=== PATIENT | male | born 1985 | race Caucasian/White ===

== ENCOUNTER 2020-09-25 13:50 | Emergency (ER) | payer OTHER, SELFPAY ==
[2020-09-25 13:53] VITALS: BP 152/79; PULSE 79; RESP 18; TEMP 35.7; O2SAT 100
[2020-09-25 14:14] LABS: Basophils Percent Auto 0.5 % (0.2-1.2); Eosinophils Absolute Auto 0.3 K/mm3 (0-0.3); Hematocrit 44.4 % (42.0-52.0); Immature Granulocyte Absolute 0.02 K/mm3 (0.00-0.031); Immature Granulocyte Percent A 0.3 % (0-0.5); Lymphocytes Absolute Auto 2.06 K/mm3 (0.9-3.2); Lymphocytes Percent Auto 28.3 % (18.3-44.2); Mean Corpuscular HGB Conc 33.8 g/dl (32-36); Mean Corpuscular Hemoglobin 27.7 pg (26-34); Mean Corpuscular Volume 81.9 fl (80-100); Mean Platelet Volume 11.2 fl (7.4-10.4); Monocytes Absolute Auto 0.6 K/mm3 (0.1-0.6); Monocytes Percent Auto 7.5 % (2.6-8.5); Neutrophils Absolute Auto 4.3 K/mm3 (1.3-6.7); Neutrophils Percent Auto 59.4 % (45.5-73.1); Platelet Count Result 171 k/mm3 (150-375); Red Blood Count 5.42 M/mm3 (4.6-6.20); Red Cell Distribution Width 12.5 % (11.5-14.5); White Blood Count 7.3 K/mm3 (4.5-10.0)
[2020-09-25 14:27] LABS: Alanine Aminotransferase 37 U/L (4-50); Albumin Level 4.3 g/dL (3.5-5.1); Alkaline Phosphatase 61 U/L (38-126); Anion Gap 5 mmol/L (8-16); Aspartate Amino Transferase 32 U/L (17-59); Bilirubin,Total 0.4 mg/dL (0.2-1.3); Blood Urea Nitrogen 17 mg/dL (9-20); Calcium 9.1 mg/dL (8.4-10.2); Carbon Dioxide 31 mmol/L (22-30); Chloride 104 mmol/L (98-107); Estimated CRCL calculation 125 ml/min; Estimated Glomerular Filt Rate > 60; Glucose 89 mg/dL (75-110); Potassium 3.8 mmol/L (3.4-5.0); Sodium 140 mmol/L (137-145)
--- NOTE | 2020-09-25 14:32 | PC.NURSE ---
provider in room now for rectal exam. labs have been sent.
[2020-09-25 14:35] LABS: Partial Thromboplastin Time 29.8 SECONDS (22.3-36.8); Prothrombin Time 14.2 Seconds (11.1-14.7)
--- NOTE | 2020-09-25 14:35 | PC.NURSE ---
provider done with exam. planning to discharge patient soon.
--- NOTE | 2020-09-25 14:36 | ED.GIBLEED ---
HPI - GI Bleed General Chief complaint: GI Bleed Stated complaint: Blood in Stool Time Seen by Provider: 09/25/20 14:12 Source: patient Mode of arrival: ambulatory Limitations: no limitations History of Present Illness HPI Narrative: 35-year-old male presents to the emergency department today with complaints of blood in his stools. Patient states that he noted that it started on Monday and this was the heaviest day by far. Patient states that the blood was not mixed in with the stool but rather seem to coded. He notes that when he went to wipe himself there was bright red blood. This happened twice on Monday. Patient stated that on there was no further bleeding. Patient notes that today when he had his morning bowel movement there was some blood associated with this but again not as much as Monday. Patient denies being on any blood thinners, denies any foreign bodies in his anus or any sexual activities involving his anus. Related Data Allergies Allergy/AdvReac Type Severity Reaction Status Date / Time No Known Allergies Allergy Unverified 01/08/12 14:18 Review of Systems Review of Systems: Narrative: CONSTITUTIONAL: Denies fever, chills, or sweats. EYES: Denies visual changes, redness, or discharge. ENT: Denies rhinorrhea, congestion, sore throat, or otalgia. CARDIOVASCULAR: Denies chest pain, palpitations, or edema. RESPIRATORY: Denies cough or dyspnea. GASTROINTESTINAL: Denies abdominal pain, nausea, vomiting, or diarrhea. GENITOURINARY: Denies dysuria or hematuria. SKIN: Denies rash or itching. MUSCULOSKELETAL: Denies back pain, joint pain, or myalgia. NEUROLOGIC: Denies headache, numbness, dizziness, or weakness. PSYCHIATRIC: Denies anxiety or depression. Exam Narrative: Exam Narrative: GENERAL: Well-appearing, well-nourished, and in no acute distress. HEAD: Normocephalic, atraumatic. EYES: PERRLA and EOMI. ENT: Nares clear, no rhinorrhea or epistaxis. Mucous membranes moist. Oropharynx without tonsillar hypertrophy exudate or other lesions. Bilateral TMs pearly mccoy nonbulging NECK: Supple. No adenopathy or masses. No carotid bruits or JVD CHEST: Clear to auscultation. No respiratory distress. No wheezes rales or rhonchi HEART: Regular rate and rhythm. No murmur heard. Normal peripheral pulses. ABDOMEN: Soft, nontender, nondistended, normal active bowel sounds. Rectal: Slight swelling noted at the 4 o'clock position. No blood seen. Nontender exam. EXTREMITIES: Normal range of motion. No edema. SKIN: Warm, dry, no rash. NEURO: No focal deficits. Alert and oriented x3. PSYCH: Normal mood and affect. Course Vital Signs Vital signs: Vital Signs Temperature 35.7 C L 09/25/20 13:53 Pulse Rate 79 09/25/20 13:53 Respiratory Rate 18 09/25/20 13:53 Blood Pressure 152/79 H 09/25/20 13:53 Pulse Oximetry 100 09/25/20 13:53 Temperature 35.7 C L 09/25/20 13:53 Pulse Rate 79 09/25/20 13:53 Respiratory Rate 18 09/25/20 13:53 Blood Pressure 152/79 H 09/25/20 13:53 Pulse Oximetry 100 09/25/20 13:53 MDM - GI Bleed MDM Narrative Medical decision making narrative: In brief this is a 35-year-old male came into the emergency department with complaints of rectal bleeding. Patient was having bright red blood per rectum. With his history, examination this is likely consistent with internal bleeding hemorrhoids. Patient on my exam did not have any signs of active bleeding. His hemoglobin was reviewed and 15. Patient will be given referral for GI as well as Anusol suppositories upon discharge. Medical Records Attestation: I reviewed the patient's medical records. Lab Data Attestation: I reviewed the patient's lab results. Result diagrams: 09/25/20 14:01 09/25/20 14:01 Labs: Lab Results 09/25/20 09/25/20 09/25/20 Range/Units 14:01 14:01 14:01 WBC 7.3 (4.5-10.0) K/mm3 RBC 5.42 (4.6-6.20) M/mm3 Hgb 15.0 (14.0-18.0) g/dL Hct 44.
== END 2020-09-25 14:55 | disposition home or self-care (01) ==
PROVIDERS: Emergency Medicine; Emergency Provider Emergency Medicine
DX: K64.8 Other hemorrhoids (principal)
CPT/HCPCS: 36415; 80053; 85025; 85610; 85730; 86850; 86900; 86901; 99283

== ENCOUNTER 2023-06-27 11:13 | Emergency (ER) | payer OTHER, SELFPAY ==
[2023-06-27 11:32] VITALS: BP 146/85; PULSE 101; RESP 16; TEMP 36.4; O2SAT 98
--- NOTE | 2023-06-27 11:40 | ED.URI ---
HPI - URI/Sore Throat General Chief Complaint: Upper Respiratory Infection Stated Complaint: EARACHE/EYE REDNESS/COUGH Time Seen by Provider: 06/27/23 11:43 Source: patient and RN notes reviewed Mode of arrival: ambulatory Limitations: no limitations History of Present Illness HPI Narrative: 38-year-old male presents with concern for one-week history of sinus congestion, sinus pressure, ear pressure and pain, eye redness and drainage. Reports he thought telehealth who prescribed him Tessalon Perles and ipratropium nasal spray. He reports symptoms persisted besides the medications. He reports history of ear problems, ear tubes. Reports overnight he felt a pressure release in his ear and has been having drainage from the ear since then. He reports cough that is keeping him awake at night, Tessalon Perles are not helping MD elicited complaint: cough and nasal congestion Related Data Allergies Allergy/AdvReac Type Severity Reaction Status Date / Time No Known Allergies Allergy Unverified 06/27/23 11:47 Review of Systems Review of Systems: CONSTITUTIONAL: Denies malaise, chills, sweats, or fever. EYES: Denies visual changes. Reports bilateral pressure, redness, discharge. ENT: Reports rhinorrhea, congestion, sinus pain, otalgia and sore throat. CARDIOVASCULAR: Denies chest pain, palpitations, or edema. RESPIRATORY: Reports cough. Denies dyspnea. GASTROINTESTINAL: Denies abdominal pain, nausea, vomiting, diarrhea SKIN: Denies rash or itching. MUSCULOSKELETAL: Reports myalgia. NEUROLOGIC: Denies headache. All systems reviewed & are unremarkable except as noted in HPI and below PMFSH Comments At time of signature, agree with nursing past medical, surgical, social and family history. There is no relevant family history pertinent to the presenting complaint Exam Narrative: GENERAL: Well-appearing, well-nourished, and in no acute distress. HEAD: Normocephalic EYES: PERRLA, conjunctivae and sclera injected with cloudy drainage noted ENT: Nares clear, turbinates edematous and erythematous. Mucous membranes moist. Left TM pearly mccoy with dull light reflex, right TM erythematous and bulging with small amount of drainage noted, no total perforation noted; no tragal tenderness. Oropharynx not erythematous without lesions. Tonsils not enlarged and without exudate, no drooling, no hoarseness, no trismus, uvula midline. NECK: Supple. No lymphadenopathy CHEST: Clear to auscultation, breath sounds equal. No wheezing, rhonchi, rales, or stridor. No respiratory distress, speaks in full sentences. HEART: Regular rate and rhythm. No murmur heard. SKIN: Warm, dry, no rash. NEURO: Alert and oriented x3. PSYCH: Normal mood and affect Course Course Emergency Course: Patient is aware of diagnosis, understands and agrees to treatment plan. Anticipatory guidance given. Patient agrees to follow-up as directed and is aware of reasons to seek care at the emergency department. Portions of this record may have been created with voice recognition software Level of Care: Express Care Visit Vital Signs Vital signs: Vital Signs Temperature 97.5 F L 06/27/23 11:32 Pulse Rate 101 H 06/27/23 11:32 Respiratory Rate 16 06/27/23 11:32 Blood Pressure 146/85 H 06/27/23 11:32 Pulse Oximetry 98 06/27/23 11:32 Temperature 97.5 F L 06/27/23 11:32 Pulse Rate 101 H 06/27/23 11:32 Respiratory Rate 16 06/27/23 11:32 Blood Pressure 146/85 H 06/27/23 11:32 Pulse Oximetry 98 06/27/23 11:32 Reviewed. MDM - URI/Sore Throat MDM Narrative Medical decision making narrative: Differential diagnosis considered: Joshi virus, strep pharyngitis, allergic rhinitis, upper respiratory tract infection, sinusitis, rhinosinusitis, nasopharyngitis. viral pharyngitis, otitis media, otitis externa, pneumonia, bronchitis, viral cough syndrome, viral syndrome, and influenza. Exam findings show no acute concerns or changes; patient is non-toxic
== END 2023-06-27 11:53 | disposition home or self-care (01) ==
PROVIDERS: Emergency Provider Nurse Practitioner; PCP Internal Medicine
DX: J32.9 Chronic sinusitis, unspecified (principal); H10.9 Unspecified conjunctivitis; H66.91 Otitis media, unspecified, right ear; G47.30 Sleep apnea, unspecified
CPT/HCPCS: 99213; G0463